=== PATIENT | male | born 1990 | race Two or more races ===

== ENCOUNTER 2020-04-07 01:06 | Emergency (ER) | payer SELFPAY ==
[~2020-04-07] VITALS: Ht 172.7 cm; Wt 72.6 kg
[2020-04-07 01:11] VITALS: BP 140/90
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
[2020-04-07 01:20] VITALS: BP 141/85
== END 2020-04-07 01:22 ==
LOC: EMR 01:15
DX: Z02.89 Encounter for other administrative examinations (principal); S00.81XA Abrasion of other part of head, initial encounter; W22.8XXA Striking against or struck by other objects, initial encounter; Y93.89 Activity, other specified; Y92.9 Unspecified place or not applicable
CPT/HCPCS: 99281